=== PATIENT | female | born 2000 | race Caucasian/White ===

== ENCOUNTER 2021-01-01 16:49 | Emergency (ER) | payer OTHER ==
[2021-01-01 17:41] LABS: BILIRUBIN NEGATIVE (NEGATIVE); BLOOD 2+ Ery/uL (NEGATIVE); CLARITY CLOUDY (CLEAR); COLOR YELLOW (YELLOW); GLUCOSE (U) NORMAL (NORMAL); LEUKOCYTES NEGATIVE Leu/uL (NEGATIVE); NITRITE NEGATIVE (NEGATIVE); PROTEIN 2+ mg/dL (NEGATIVE); SPECIFIC GRAVITY 1.025 (1.001-1.030); UROBILINOGEN 0.2 mg/dL (0.2-1.0)
[2021-01-01] MEDS ORDERED: VENTOLIN HFA18 GM INH (17:43)
[2021-01-01 17:57] LABS: BACTERIA 1+; URINARY RBC RARE
[2021-01-01 18:06] LABS: AMORPHOUS URATES CRYSTALS TRACE
[2021-01-01 18:37] LABS: BASOPHIL 0.4 % (0-2); EOSINOPHIL 0.5 % (0-5); HCT 42.7 % (37.0-47.0); HGB 13.9 g/dl (12.5-16.0); LYMPHOCYTE 16.2 % (15-48); MCH 29.4 pg (25.0-31.0); MCHC 32.6 g/dL (32.0-36.0); MCV 90.3 fL (78.0-100.0); MONOCYTE 7.7 % (0-12); MPV 11.7 fL (6.0-9.5); NEUTROPHIL 74.7 % (41-80); NRBC 0; PLT 230 K/uL (150-400); RBC 4.73 M/uL (4.20-5.40); RDW 12.1 % (11.5-14.0); WBC 10.8 K/uL (4.0-10.5)
[2021-01-01 18:39] LABS: HCG (URINE) SCREEN NEGATIVE (NEGATIVE)
[2021-01-01 18:54] LABS: ALBUMIN 4.1 g/dL (3.4-5.0); BILIRUBIN - TOTAL 0.3 mg/dL (0.2-1.0); BUN/CREAT RATIO (CALC) 14.1 RATIO; CREATININE 0.85 mg/dL (0.51-0.95); GLOBULIN (CALCULATION) 3.8 g/dL; POTASSIUM 4.3 mmol/L (3.5-5.1); TOTAL PROTEIN 7.9 g/dL (6.4-8.2)
[2021-01-01] MEDS ORDERED: BACTRIM DS TAB1 EACH PO (19:16)
[2021-01-01] MEDS ORDERED: NAPROXEN500 MG PO (19:16)
[2021-01-01] MEDS ORDERED: ONDANSETRON ODT4 MG PO (19:16)
== END 2021-01-01 20:30 | disposition home or self-care (01) ==
LOC: FER 16:49
PROVIDERS: Emergency Medicine
DX: N39.0 Urinary tract infection, site not specified (principal); R31.9 Hematuria, unspecified; Z88.0 Allergy status to penicillin
CPT/HCPCS: 36415; 80053; 81001; 84703; 85025; 87088; J0696; J1885; J2405; J7030